=== PATIENT | male | born 1955 | race Caucasian/White ===

== ENCOUNTER 2020-04-16 07:47 | Emergency (ER) | payer MEDICARE ==
--- NOTE | 2020-04-16 08:46 | EDM.PDOC ---
ED HPI GENERAL MEDICAL PROBLEM - General Chief Complaint: General Stated Complaint: BOTH LEGS ARE SORE AND PAINFUL,RASH ON TOP OF HEAD Time Seen by Provider: 04/16/20 08:20 Source of Information: Reports: Patient. Denies: Old Records History Limitations: Reports: Other (no old records) - History of Present Illness INITIAL COMMENTS - FREE TEXT/NARRATIVE: 64 yo male resident of [place] presents with a number of complaints. He moved to that area about a yr ago from [place] and has no primary care provider. His main concern today is intermittent, bilateral thigh numbness/burning that comes and goes and alternates at times from left to right. He has no hx of DM and has no hx of back pain or injury. He is not numb below the knees. He has no walking issues. He has a psych hx and is not taking any medications currently. He has a pHx of psoriasis and is not on meds for that either. He states he has a weak urinary stream, nasal congestion, and mild constipation. He ate prunes and plums before coming to the ER today. Onset: Gradual, Unknown/Unsure Duration: Week(s):, Waxing/Waning Location: Reports: Lower Extremity, Left, Lower Extremity, Right Quality: Reports: Other (tingling, burning) Severity: Mild Improves with: Reports: None Worsens with: Reports: Other (? time) Context: Reports: Other (See HPI) Associated Symptoms: Reports: No Other Symptoms Treatments [employer]ER [employer]ER: Reports: Other (see below) (none) - Related Data Allergies Allergy/AdvReac Type Severity Reaction Status Date / Time No Known Allergies Allergy Verified 04/16/20 08:05 Home Meds: Home Meds NK [No Known Home Meds] 04/16/20 [History] Past Medical History HEENT History: Reports: Impaired Vision Cardiovascular History: Reports: Other (See Below) Other Cardiovascular History: thinks had heart attack at one time Gastrointestinal History: Reports: None Psychiatric History: Reports: Schizophrenia Endocrine/Metabolic History: Reports: Obesity/BMI 30+ Dermatologic History: Reports: Other (See Below) Other Dermatologic History: rash on bilat elbow and on head unsure of what it is - Past Surgical History Head Surgeries/Procedures: Reports: None HEENT Surgical History: Reports: Tonsillectomy Cardiovascular Surgical History: Reports: None GI Surgical History: Reports: Cholecystectomy Endocrine Surgical History: Reports: None Dermatological Surgical History: Reports: None Social & Family History - Tobacco Use Smoking Status *Q: Former Smoker Used Tobacco, but Quit: Yes Month/Year Tobacco Last Used: 1999 Second Hand Smoke Exposure: No - Caffeine Use Caffeine Use: Reports: Coffee, Soda, Tea - Alcohol Use Days Per Week of Alcohol Use: 1 Number of Drinks Per Day: 3 Total Drinks Per Week: 3 - Recreational Drug Use Recreational Drug Use: No ED ROS GENERAL - Review of Systems Review Of Systems: See Below Constitutional: Reports: No Symptoms HEENT: Reports: No Symptoms Respiratory: Reports: No Symptoms Cardiovascular: Reports: No Symptoms GI/Abdominal: Reports: No Symptoms : Reports: No Symptoms Musculoskeletal: Reports: No Symptoms Skin: Reports: No Symptoms Neurological: Reports: Numbness (of both thighs). Denies: Difficulty Walking ED EXAM, GENERAL - Physical Exam Exam: See Below Exam Limited By: No Limitations General Appearance: Alert, WD/WN, No Apparent Distress Eye Exam: Bilateral Eye: Normal Inspection Ears: Normal External Exam, Normal Canal, Hearing Grossly Normal Ear Exam: Bilateral Ear: Auricle Normal, Canal Normal Nose: Other (pale nasal mucosa with some congestion) Throat/Mouth: Normal Inspection, Normal Voice, No Airway Compromise Head: Atraumatic, Normocephalic Neck: Normal Inspection Respiratory/Chest: No Respiratory Distress, No Accessory Muscle Use Cardiovascular: Regular Rate, Rhythm, No Edema Extremities: Normal Inspection, Normal Range of Motion, Non-Tender, No Pedal Edema Neurological: Alert, Oriented, CN II-XII Intact, Normal Cognition, No Motor/Sen beatrice Deficits Psychiatric: Normal Affect, Normal Mood Skin Exam: Warm, Dry, Intact, Normal Color, Rash (psoriasis of elbows and scalp). No: No Rash Course - Vital Signs Last Recorded V/S: Last Vital Signs Temp 36.1 C 04/16/20 08:12 Pulse 95 04/16/20 08:12 Resp 13 04/16/20 08:12 BP 146/92 H 04/16/20 08:12 Pulse Ox 94 L 04/16/20 08:12 - Orders/Labs/Meds Labs: Laboratory Tests 04/16/20 Range/Units 08:14 POC Glucose 120 H (74-106) MG/DL Departure - Departure Time of Disposition: 08:47 Disposition: Home, Self-Care 01 Condition: Good Clinical Impression: Thigh numbness - Discharge Information *PRESCRIPTION DRUG MONITORING PROGRAM REVIEWED*: Not Applicable *COPY OF PRESCRIPTION DRUG MONITORING REPORT IN PATIENT SANDRA: Not Applicable Referrals: PCP,None [Primary Care Provider] - Additional Instructions: Get established with a primary care provider near where you live to further a ssess your thigh numbness, you may need a referral to a neurologist. Consider cetirizine 10 mg daily for your nasal allergy symptoms. Take Miralax once or twice daily for your bowels. See your doctor to discuss medications for your enlarged prostate and psoriasis symptoms. Your nonfasting blood sugar today was 120. Sepsis Event Note (ED) - Evaluation Sepsis Screening Result: No Definite Risk - Focused Exam Vital Signs: Vital Signs Temp Pulse Resp BP Pulse Ox 04/16/20 08:12 36.1 C 95 13 146/92 H 94 L 04/16/20 08:04 36.1 C 95 13 146/92 H 94 L
== END 2020-04-16 08:56 | disposition home or self-care (01) ==
LOC: JP.ED 07:47
DX: R20.0 Anesthesia of skin (principal); E66.9 Obesity, unspecified; Z68.35 Body mass index [BMI] 35.0-35.9, adult; Z87.891 Personal history of nicotine dependence
CPT/HCPCS: 82962; 99284